=== PATIENT | female | born 1965 | race Caucasian/White ===

== ENCOUNTER 2017-03-01 05:27 | Emergency (ER) | payer MEDICARE, OTHER ==
[~2017-03-01] VITALS: Ht 152.4 cm; Wt 49.9 kg
[~2017-03-01 05:27] MED LIST: ATIVAN1 MG PO; AUGMENTIN 875-1 EACH PO; AZITHROMYCIN500 MG PO; BACLOFEN10 MG PO; BENTYL10 MG PO; CELEBREX50 MG; CEPHALEXIN500 MG PO; CLINDAMYCIN HC300 MG PO; CLONIDINE HCL0.1 MG; CLONIDINE HCL0.1 MG PO; CYCLOBENZAPRINE10 MG PO; CYMBALTA60 MG PO; DEPAKOTE ER500 MG PO; DEPAKOTE125 MG; DEPAKOTE250 MG PO; DEPAKOTE500 MG PO; DIVALPROEX SOD250 MG PO; DIVALPROEX SOD500 M1 PO; DOXYCYCLINE HY100 MG PO; DULOXETINE HCL20 MG PO; FOLIC ACID1 MG PO; GABAPENTIN300 MG PO; HALDOL5 MG/1 ML; HALOPERIDOL5 MG PO; HYDROCODON-ACE1 EAC8 PO; KEFLEX500 MG PO; LATUDA40 MG PO; LEVAQUIN500 MG PO; LEVOTHROID125 MCG; LEVOTHYROXINE100 MCG PO; LEVOTHYROXINE112 MCG PO; LEVOTHYROXINE125 MCG PO; LIDOCAINE-PRILO30 GM TOP; LORAZEPAM1 MG PO; LYRICA50 MG PO; MACROBID 100 M100 MG PO; MEDROL4 M1 PO; METHENAMINE PO; METHOTREXA25 MG/1 ML; METHOTREXATE2.5 MG PO; NICOTINE PATCH1 EAC1 TD; NORCO 10-325 T1 EACH PO; NORCO 5-325 TA1 EACH PO; OMEPRAZOLE20 MG PO; ONDANSETRON HCL4 MG PO; PEPCID20 MG PO; PRAZOSIN HCL1 MG PO; PRILOSEC20 MG PO; PROAIR HFA8.5 GM INH; PYRIDIUM200 MG PO; RIZATRIPTAN10 M1 PO; SUDAFED 12 HOU120 MG PO; TRAMADOL HCL50 MG PO; TRIAMCINOLONE A15 GM TOP; ZOFRAN ODT4 MG PO; ZOFRAN4 MG PO; ZOLPIDEM TARTRA10 MG PO; ZYPREXA5 MG PO
== END 2017-03-01 06:29 | disposition home or self-care (01) ==
LOC: ED 05:27
DX: J01.90 Acute sinusitis, unspecified (principal); F31.9 Bipolar disorder, unspecified; Z87.440 Personal history of urinary (tract) infections; F25.9 Schizoaffective disorder, unspecified; F17.200 Nicotine dependence, unspecified, uncomplicated; Z98.51 Tubal ligation status; Z88.8 Allergy status to other drugs, medicaments and biological substances; Z88.2 Allergy status to sulfonamides; Z79.899 Other long term (current) drug therapy
CPT/HCPCS: 99282

== ENCOUNTER 2017-03-12 15:12 | Emergency (ER) | payer MEDICARE, OTHER ==
[~2017-03-12] VITALS: Ht 152.4 cm; Wt 43.1 kg
[2017-03-16] MEDS ORDERED: SYNTHROID100 MCG PO (10:03)
[2017-03-16] MEDS ORDERED: ATIVAN1 MG PO (10:03)
[2017-03-16] MEDS ORDERED: GEODON20 MG PO (10:03)
== END 2017-03-16 10:22 | disposition short-term general hospital (02) ==
LOC: ED 15:12
DX: F31.9 Bipolar disorder, unspecified (principal); E03.9 Hypothyroidism, unspecified; F25.9 Schizoaffective disorder, unspecified; Z00.8 Encounter for other general examination; Z87.440 Personal history of urinary (tract) infections; F17.200 Nicotine dependence, unspecified, uncomplicated; Z98.51 Tubal ligation status; Z88.2 Allergy status to sulfonamides; Z88.8 Allergy status to other drugs, medicaments and biological substances; Z79.899 Other long term (current) drug therapy; Z91.018 Allergy to other foods
CPT/HCPCS: 36415; 80053; 80176; 81001; 84443; 85025; 96372; 99285; G0480; J2060; J3486; Q0177

== ENCOUNTER 2017-03-25 14:08 | Emergency (ER) | payer MEDICARE, OTHER ==
[~2017-03-25] VITALS: Ht 152.4 cm; Wt 50.8 kg
[~2017-03-25 14:08] MED LIST changes: +GEODON20 MG PO; +SYNTHROID100 MCG PO
[2017-03-25] MEDS ORDERED: LORAZEPAM1 MG PO (14:17)
[2017-03-25] MEDS ORDERED: BACLOFEN10 MG PO (14:18)
[2017-03-25] MEDS ORDERED: PENICILLIN V P500 MG PO (14:19)
[2017-03-25] MEDS ORDERED: ULTRAM50 MG PO (14:35)
== END 2017-03-25 14:43 | disposition home or self-care (01) ==
LOC: ED 14:08
DX: M62.830 Muscle spasm of back (principal); F41.9 Anxiety disorder, unspecified; F31.9 Bipolar disorder, unspecified; F17.200 Nicotine dependence, unspecified, uncomplicated; Z98.51 Tubal ligation status; Z90.89 Acquired absence of other organs; Z88.8 Allergy status to other drugs, medicaments and biological substances; Z91.018 Allergy to other foods; Z88.6 Allergy status to analgesic agent; Z88.2 Allergy status to sulfonamides; Z79.899 Other long term (current) drug therapy; Z79.2 Long term (current) use of antibiotics
CPT/HCPCS: 99283

== ENCOUNTER 2017-04-01 09:13 | Emergency (ER) | payer MEDICARE, OTHER ==
[~2017-04-01] VITALS: Ht 157.5 cm; Wt 45.4 kg
[~2017-04-01 09:13] MED LIST changes: +PENICILLIN V P500 MG PO; +ULTRAM50 MG PO
--- NOTE | 2017-04-05 17:03 | EKG ---
[facility] [address] [facility] [place] [address] Signed Normal sinus rhythm Prolonged QT Abnormal ECG No previous ECGs available Confirmed by CHULA PATEL MD ([id number]) on 04/05/2017 5:02:44 PM Electronically Signed By: CHULA PATEL MD 04/05/17 1703 PATIENT NAME: MAK ALMAZNA Electrocardiogram DATE OF : 63 PHYSICIAN: CHULA PATEL MD REPORT #: [id number] REPORT IS CONFIDENTIAL AND NOT TO BE RELEASED WITHOUT AUTHORIZATION
== END 2017-04-01 13:50 | disposition short-term general hospital (02) ==
LOC: ED 09:13 → EDBD 09:14 → ED 13:50
DX: R40.20 Unspecified coma (principal); R40.2431 Glasgow coma scale score 3-8, in the field [EMT or ambulance]; T68.XXXA Hypothermia, initial encounter; R09.02 Hypoxemia
CPT/HCPCS: 36600; 70450; 71010; 80053; 80176; 81001; 82550; 82803; 83605; 83735; 84484; 84703; 85025; 85610; 85730; 87040; 93005; 93010; 94002; 94799; 96361; 96365; 96375; 99291; G0480; J3475; J7030

== ENCOUNTER 2017-08-24 02:01 | Emergency (ER) | payer MEDICARE, OTHER ==
[~2017-08-24] VITALS: Ht 157.5 cm; Wt 54.5 kg
[2017-08-24] MEDS ORDERED: FOSAMAX70 MG (02:26)
[2017-08-24] MEDS ORDERED: RISPERDAL1 MG (02:27)
[2017-08-24] MEDS ORDERED: LAMICTAL (GREE1 EACH (02:28)
[2017-08-24] MEDS ORDERED: MACROBID 100 M100 MG PO (02:46)
== END 2017-08-24 03:09 | disposition home or self-care (01) ==
LOC: ED 02:01
DX: N39.0 Urinary tract infection, site not specified (principal); F41.9 Anxiety disorder, unspecified; F31.9 Bipolar disorder, unspecified; F17.200 Nicotine dependence, unspecified, uncomplicated; Z88.8 Allergy status to other drugs, medicaments and biological substances; Z91.018 Allergy to other foods; Z88.6 Allergy status to analgesic agent; Z88.2 Allergy status to sulfonamides; Z79.899 Other long term (current) drug therapy
CPT/HCPCS: 81001; 87077; 87088; 87186; 99283